=== PATIENT | male | born 1980 | race African-American/Black ===

== ENCOUNTER 2019-09-30 14:22 | Emergency (ER) | payer SELFPAY ==
[~2019-09-30] VITALS: Ht 182.9 cm; Wt 72.0 kg
[~2019-09-30 14:22] MED LIST: NO; ULTRAM50 MG OR
[2019-09-30 15:15] LABS: HEMATOCRIT 42.4 % (39.0-50.0); HEMOGLOBIN 13.3 g/dl (14.0-18.0); MEAN CORPUSCULAR HGB 27.4 pG CALC (26.0-32.0); MEAN CORPUSCULAR HGB CONC 31.4 g/dL CAL (32.0-36.0); NEUT# 1.55 thou/uL (1.82-7.42); RED BLOOD COUNT 4.86 mill/uL (4.70-6.10); RED CELL DISTRI WIDTH 16.1 % (11.5-15.5)
[2019-09-30 15:19] LABS: MEAN CELL VOLUME 87.2 fL CALC (80.0-100.0)
[2019-09-30 15:32] LABS: BILIRUBIN, TOTAL 0.2 mg/dL (0.0-1.4); BUN 10 mg/dL (9-20); BUN/CREATININE RATIO 8 (12-20 (CALC)); C-REACTIVE PROTEIN < 0.5 mg/dL (0-0.9); CHLORIDE 104 mmol/l (95-108); CREATININE 1.2 mg/dL (0.7-1.3); GFR > 60 ML/MIN (>=60 (CALC)); GFR FOR AFR.AMER. > 60 ML/MIN (>=60 (CALC)); LIPASE 176 u/l (23-300); POTASSIUM 3.8 mmol/l (3.5-5.1); SGOT/AST 26 u/l (17-59); SODIUM 139 mmol/l (137-146); TOTAL PROTEIN 7.3 g/dL (6.3-8.2)
[2019-09-30 15:35] LABS: ALBUMIN 4.6 g/dL (3.2-5.0); ALKALINE PHOSPHATASE 78 u/l (38-126); ANION GAP 11 (6-22 (CALC)); CARBON DIOXIDE 28 mmol/l (22-30)
[2019-09-30 16:29] VITALS: BP 118/68
--- NOTE | 2019-10-02 08:58 | NUR ---
Notified patient of positive Covid results. Advised patient to quarantine until contacted by the [facility]. Advised patient to return to ED with any difficulty breathing or other urgent matters. patient verbalized understanding. Patient denies cough or SOB. Patient c/o fatigue only.
== END 2019-09-30 16:35 | disposition home or self-care (01) | DRG 179 ==
LOC: ED 14:22
DX: U07.1 COVID-19 (principal); F17.200 Nicotine dependence, unspecified, uncomplicated

== ENCOUNTER 2019-10-17 13:33 | Emergency (ER) | payer SELFPAY | END 2019-10-17 13:39 | disposition left against medical advice (07) | DRG 951 | LOC: ED 13:33 → LWOBS 13:39 | DX: Z91.19 Patient's noncompliance with other medical treatment and regimen (principal) ==